=== PATIENT | male | born 1990 | race Asian ===

== ENCOUNTER 2016-10-31 13:19 | Emergency (ER) | payer OTHER ==
[~2016-10-31] VITALS: Ht 172.7 cm; Wt 79.4 kg
[2016-10-31 14:10] LABS: POTASSIUM 3.9 mmol/L (3.6-5.2); SODIUM 135 mmol/L (136-145)
[2016-10-31 14:18] LABS: PLATELET COUNT 233 K/uL (142-355)
[2016-10-31 15:20] VITALS: BP 122/75; TEMP 98.7
== END 2016-10-31 15:20 | disposition home or self-care (01) ==
LOC: ED 13:19 → EDSEX 13:19 → ED 15:20
PROVIDERS: Emergency Medicine
DX: K52.9 Noninfective gastroenteritis and colitis, unspecified (principal); R11.10 Vomiting, unspecified; R19.7 Diarrhea, unspecified; E86.9 Volume depletion, unspecified
CPT/HCPCS: 36415; 80053; 80307; 81000; 85027; 96361; 96374; 96375; 99284; G0479; J1885; J2405